=== PATIENT | female | born 1985 | race Caucasian/White ===

== ENCOUNTER → 2017-09-17 | Outpatient (CLI) | payer OTHER | END | disposition home or self-care (01) | LOC: KCIC MRI 08:13 | DX: M47.895 Other spondylosis, thoracolumbar region (principal); M48.061 Spinal stenosis, lumbar region without neurogenic claudication; M51.25 Other intervertebral disc displacement, thoracolumbar region; R25.2 Cramp and spasm | CPT/HCPCS: 72148 ==